=== PATIENT | male | born 1955 | race Caucasian/White ===

== ENCOUNTER 2023-02-22 17:55 | Observation (INO) | payer OTHER ==
--- NOTE | 2023-02-22 17:30 | NUR ---
PATIENT ADMITED INTO ROOM 342 VIA EMS FROM [place] WITH ABD PAIN. AT BEDSIDE DISCUSSING THE HIGH PROBABILITY OF THIS BEING STOMACH CANCER AND THE NEED TO TRANSFER TO A HIGHER LEVEL OF CARE. PATIENT ADMITTED AND HEAD TO TOE ASSESSMENT COMPLETE. SEE PROVIDER NOTES/ORDERS.
[2023-02-22 18:36] VITALS: BP 108/68; PULSE 101; TEMP 99.6
--- NOTE | 2023-02-22 19:00 | NUR ---
PT A&O X4 LAYING IN BED. VSS ON 3L/NC. DENYING N/V. STATES PAIN IS 7/10 IN ABD, SEE MAR. IVF INFUSING TO LEFT AC. CALL LIGHT IN REACH& DENYING FURTHER NEEDS.
[2023-02-22 19:57] VITALS: BP 131/75; PULSE 107; TEMP 99.3
--- NOTE | 2023-02-22 21:24 | NUR ---
2039 - PT LEFT VIA EMS TO [place] ON 3L/NC. NS @ 150 INFUSING TO LEFT AC. GIVEN PRN MARYAUDID @ 2029 FOR ABD PAIN 2049 - REPORT CALLED TO [facility]
== END 2023-02-22 20:40 | disposition home or self-care (01) ==
LOC: SURG 17:55
PROVIDERS: ADMIT Surgery
DX: K31.89 Other diseases of stomach and duodenum (principal); C16.9 Malignant neoplasm of stomach, unspecified; F17.210 Nicotine dependence, cigarettes, uncomplicated
CPT/HCPCS: J1170; J7030